=== PATIENT | female | born 1955 | race Caucasian/White ===

== ENCOUNTER 2018-10-26 05:59 | Day surgery (SDC) | payer BC, OTHER ==
[~2018-10-26] VITALS: Ht 162.6 cm; Wt 101.6 kg
[~2018-10-26 05:59] MED LIST: AMLODIPINE BESY10 MG PO; ATENOLOL 50MG T50 M1 PO; ESTRADIOL1 EAC8 TRANSDERM; HYDROXYCHLOROQ200 M1 PO; LEVALBUTEROL TA15 GM INH; NEXIUM40 MG PO; NITROGLYCERIN0.4 MG SUBLING; PROGESTERONE100 MG PO; ROPINIROLE HCL0.5 MG PO; SINEMET 25-1001 EAC1 PO; SYNTHROID112 MC1 PO; TOPAMAX50 MG PO; ZOCOR20 MG PO; ZOLPIDEM TARTRA10 MG PO
[2018-10-26 07:24] VITALS: BP 131/58
[2018-10-26 11:13] VITALS: BP 131/58
--- NOTE | 2018-10-26 11:54 | O ---
[facility] [place] [address] OPERATIVE REPORT Name: JENNIFER DONAHUE Room #: 150-6 [facility].#: [id number] Admission: 10/26/18 Attend Phys: Rob Lyons MD Discharge: Date of : 53 Report #: [id number] THIS REPORT FOR: //name// CC: DARIA Lyons Physician staff DATE OF SERVICE: 10/26/2018 SERVICE: Orthopedics. FACILITY: [facility]. SURGEON: Rob Lyons MD. SPEECH AND LANGUAGE CLINICIAN: Sherita Rizvi NP. Indication is extremity positioning and manipulation. PREOPERATIVE DIAGNOSES: 1. Status post left total hip arthroplasty. 2. Left hip pain. 3. Left hip flexion contracture. POSTOPERATIVE DIAGNOSES: 1. Status post left total hip arthroplasty. 2. Left hip pain. 3. Left hip flexion contracture. PROCEDURE: 1. Left hip extensive arthroscopic debridement with lysis of adhesions and anterior capsulotomy. 2. Left hip arthroscopic iliopsoas tendon release. COMPLICATIONS: None. DRAINS: None. SPECIMENS: Single synovial biopsy for culture and tissue analysis. HISTORY AND INDICATIONS: The patient is a 63-year-old female with a history of bilateral total hip arthroplasties, both of which provided good relief of her arthritic pain; however, the left side developed a hip flexion contracture and was causing her gait disruption as well as low back pain due to the continued hip flexion. She had good range of motion and normal extension of the right hip. We had discussed options for after she had seen multiple providers and sought second and third opinion based on her physical examination and the fact [facility] [address] [place] [address] OPERATIVE REPORT Name: JENNIFER DONAHUE Room #: 150-6 [facility] M.R.#: [id number] Admission: 10/26/18 Attend Phys: Rob Lyons MD Discharge: Date of : 53 Report #: [id number] that component malposition and infection had been ruled out and she had failed physical therapy. We felt that surgical lysis of adhesions and iliopsoas release would be most appropriate option. She understood that there was pus, but this would not provide sufficient relief. Risks, benefits, alternatives, and indication of surgery discussed with the risks include but not limited to pain, bleeding, infection, injury to nerves or blood vessels, persistent pain despite surgical intervention, continued stiffness as well as need for further surgery including revision as well as complications related to anesthesia including pulmonary complications and due to her increased risk related to COPD. PROCEDURE IN DETAIL: After left lower extremity was correctly identified in the preoperative holding area as operative extremity, the patient was taken to the operating room where general anesthesia was induced without complication. She was padded appropriately. Prophylactic antibiotics were administered at appropriate time. Left leg was then prepped and draped in standard sterile fashion. Time-out procedure was performed. Using fluoroscopic guidance, the access to the anterior femoral neck was achieved with triangulation technique. There was significant amount of scar tissue that actually precluded access to the prosthesis with a blunt trocar dissection. The triangulation point was established just outside of the capsule and then cautery and shaver was used to progressively obtain access through the anterior capsule, which was quite thickened and scarred in and measured over an inch in thickness. After this was opened and the initial capsulotomy had been completed, it was worked medially, laterally and proximally until the entire femoral head could be visualized articulating with the polyethylene component and then the acetabular shell could be visualized as well. There was quite a bit of extensive thickening and lysis of adhesions was performed across the front and then medially and laterally. There was noted to be some synovium anteromedially that was trapped between the femoral head component and the polyethylene liner and I excised this. We pulled slight manual traction to free the trap tissue from the hip and then sent a portion of it for tissue culture and then portion for permanent pathology. The iliopsoas tendon was then visualized and the cautery was used to perform an iliopsoas tendon recession at the level of the femoral head component. There was no evidence of impingement of the acetabular cup on the iliopsoas more proximally as the cup fit well. All of the components were well seated. There was no evidence of loosening or infection or other complication. I think the primary issue was the significant thickened fibrotic anterior capsule and scar tissue that had formed over time. She was noted to have easier passive extension after completion of the capsulotomy and she was noted to have significant hip flexure contracture of about 10 degrees up to 15 degrees preoperatively that was asymmetric from her right hip on examination under anesthesia. After the debridement was completed, the arthroscopic effusion was drained. The [address] [address] OPERATIVE REPORT Name: JENNIFER DONAHUE Room #: 150-6 [facility].#: [id number] Admission: 10/26/18 Attend Phys: Rob Lyons MD Discharge: Date of : 53 Report #: [id number] instruments were removed. The portal sites were closed. Sterile dressing was applied. The patient was awakened from anesthesia and taken to recovery room in stable condition. There were no complications. All counts were reported as correct. <ELECTRONICALLY SIGNED> By: Rob Lyons MD 10/26/18 1154 [id number] [id number] Rob Lyons MD /nt
--- NOTE | 2018-10-28 16:06 | PATH ---
[facility] [address] [place] [address] PATHOLOGY RPT PROCEDURE Name: CARLIE DONAHUE Room #: DEP [facility] M.R.#: [id number] Admission: 10/26/18 Date of : 53 Discharge: 10/26/18 Report #: [id number] Path Case #: [id number] [facility] Accession Number: [id number] . 01 Material submitted: . LEFT TOTAL HIP SYNOVIAL BX, CELL PER HIGH POWERED FIELD . 01 Clinical history: . Left hip cartilage disorders . 02 Diagnosis: Left total hip synovial, biopsy: - Fragments with fibrinoid degeneration and inflammatory cells. - Fragments of dense fibrovascular connective tissue with mild chronic inflammation. - No increase in neutrophils per high power field. 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 02 Electronically signed: . Ayesha Rodriguez MD, Pathologist NPI- [id number] . 01 Gross description: . The specimen is received in formalin, labeled "Carlie Donahue, left total hip synovial biopsy, cell per high powered field". Received are multiple segments of pale pena yellow-pena fibromembranous tissue ranging in size from 0.1 to 0.7 cm in maximum dimensions. The specimen is submitted entirely in cassette A1. (CAA; 10/27/2018) QAC/QAC . 02 Pathologist provided ICD-10: M24.152 . 02 CPT . 462774 Specimen Comment: A courtesy copy of this report has been sent to Specimen Comment: [phone], . Specimen Comment: Report sent to / DR WOLF Performed at: [address] [id number] MD Jesse Butt MD Phone: [phone] Performed at: [address] [id number] [address] [address] PATHOLOGY RPT PROCEDURE Name: SHILPI DONAHUEYL Hernandez Room #: DEP [facility] Roland#: [id number] Admission: 10/26/18 Date of : 53 Discharge: 10/26/18 Report #: [id number] Path Case #: [id number] MD Ayesha Rodriguez MD Phone: [phone]
== END 2018-10-26 12:45 | disposition home or self-care (01) ==
LOC: OR 05:59 → TBA 06:00 → OR 09:35
DX: M24.552 Contracture, left hip (principal); Z96.643 Presence of artificial hip joint, bilateral; I10 Essential (primary) hypertension; E78.5 Hyperlipidemia, unspecified; J43.9 Emphysema, unspecified; K21.9 Gastro-esophageal reflux disease without esophagitis; M79.7 Fibromyalgia; M06.9 Rheumatoid arthritis, unspecified; B19.20 Unspecified viral hepatitis C without hepatic coma; Z87.891 Personal history of nicotine dependence; Z98.890 Other specified postprocedural states; Z79.899 Other long term (current) drug therapy
CPT/HCPCS: 50010; 50101; 50386; 51320; 51538; 52001; 52282; 52304; 52313; 56524; 56527; 57091; 57103; 62110; 62900; 70005